=== PATIENT | female | born 1950 | race African-American/Black ===

== ENCOUNTER → 2017-03-30 | Outpatient (CLI) | payer MEDICARE, OTHER ==
[~2017-03-30] MED LIST: BENICAR HCT 20-1 TA1 PO; BYSTOLIC5 MG PO; HYDROCHLOROTHIA25 MG PO; LISINOPRIL20 MG PO; LORTAB 7.5-5001 TAB; NORVASC PO; OMEPRAZOLE40 M1 PO; PHENERGAN25 M1; PROAIR HFA8.5 GM IH; [UNRECOGNIZED DRUG - OTHER] PO; [UNRECOGNIZED DRUG - REMARK]
--- NOTE | ~2017-03-30 | MY29 ---
[facility] A Service of [facility] & [facility] RADIOLOGY TEXT RESULTS PATIENT: PETRA VAUGHN LOCATION: [facility] : 54 UNIT #: [id number] AGE: [address]: Ira Christianson APRN SEX: F ORDER DR: [id number] [facility] [address] [place], [place] [address] [id number] O MR#: [id number] Acc #: [id number] NAME: PETRA VAUGHN : 1950 SEX: F STUDY DATE/TIME: 03/30/2017 9:01 UNIT: [facility] ROOM: STUDY DESCRIPTION: DASHAWN SCREENING W/ CAD BILAT Attending Physician: Ira Christianson M.D. Referring Physician: Ira Christianson M.D. Ordering Physician: Ira Christianson M.D. Primary Care Physician: Ira Christianson M.D. MEDICAL IMAGING REPORT This report is preliminary unless electronic signature is present EXAM Bilateral digital screening mammogram with CAD 03/30/2017 HISTORY 67-year-old female with no documented personal or family history of breast cancer or current complaints. COMPARISON Right breast diagnostic mammogram and ultrasound 12/08/2010. Bilateral digital screening mammogram 10/20/2010. FINDINGS CC and MLO views were obtained of each breast utilizing digital technique and reviewed with an FDA-approved CAD device. An oval circumscribed 1.5 cm nodule within the 9 o'clock axis right breast anterior third appears stable compared to the diagnostic mammogram of 12/08/2010. Another previously seen 8 mm nodule within the right breast slightly more superiorly on the MLO view appears nearly inconspicuous today. On previous ultrasound, the nodules have appearances of fibroadenomas. Scattered fibroglandular densities are present bilaterally. No definite new nodule is identified. Fibroglandular tissue within the upper outer left breast mid to posterior third is likewise stable since the previous exam. No architectural distortion. No abnormal skin thickening or nipple retraction is identified. Another nodular density seen within the lateral hemisphere right breast CC view mid to anterior third measures about 5-6 mm and is likewise a stable finding since 2012. IMPRESSION BIRADS: 2 Benign finding. Oval nodular density in the right breast STS. [facility] A Service of [facility] & [facility] RADIOLOGY TEXT RESULTS PATIENT: PETRA VAUGHN LOCATION: [facility] : 54 UNIT #: [id number] AGE: [address]: Ira Christianson APRN SEX: F ORDER DR: compatible with a benign fibroadenoma based upon previous imaging studies. There are no new features suspicious for malignancy. Routine bilateral screening mammogram is recommended in 1 year. Patients over the age of 40 are entered into a reminder system with target due date for the next mammogram. A result letter will also be sent to the patient. BIRADS: 2 Benign finding Dictated by... Karin Vilchis M.D. THIS IS AN ELECTRONICALLY VERIFIED REPORT Karin Vilchis M.D. at 04/02/2017 8:48 AM SANDER/danica TD: 03/30/2017 12:42 JOB #: [id number] MEDICAL IMAGING REPORT Page 1 of 1 COPY
== END | disposition home or self-care (01) ==
LOC: CWCC 08:46
DX: Z12.31 Encounter for screening mammogram for malignant neoplasm of breast (principal)
CPT/HCPCS: G0202